=== PATIENT | male | born 1995 | race Caucasian/White ===

== ENCOUNTER 2017-03-05 21:31 | Emergency (ER) | payer MEDICAID ==
[~2017-03-05] VITALS: Ht 177.8 cm; Wt 83.0 kg
[2017-03-05] MEDS ORDERED: SULFAMETH./TRIMETHOPRIM DS 800MG/160MG TABLET ONE (22:30)
[2017-03-05] MEDS ORDERED: CEFAZOLIN 1,000 MG IM ONE (22:30)
[2017-03-05] MEDS ORDERED: CEFAZOLIN 1,000 MG ONE (22:30)
[2017-03-05] MEDS ORDERED: SULFAMETH./TRIMETHOPRIM DS 800MG/160MG TABLET PO ONE (22:30)
[2017-03-06] MEDS ORDERED: IBUPROFEN 200 MG TABLET ONE (00:26)
[2017-03-06] MEDS ORDERED: IBUPROFEN 200 MG TABLET PO ONE (00:30)
[2017-03-06 00:38] VITALS: BP 106/68
== END 2017-03-06 00:40 | disposition home or self-care (01) ==
LOC: ED 23:07
DX: L03.115 Cellulitis of right lower limb (principal)
CPT/HCPCS: 73630; 96372; 99284; J0690

== ENCOUNTER → 2020-01-20 | Outpatient (CLI) | payer MEDICAID | END | disposition home or self-care (01) | LOC: RAD 15:52 | PROVIDERS: ATTEND Orthopaedic Surgery | DX: S62.316A Displaced fracture of base of fifth metacarpal bone, right hand, initial encounter for closed fracture (principal); X58.XXXA Exposure to other specified factors, initial encounter; Y93.89 Activity, other specified; Y92.89 Other specified places as the place of occurrence of the external cause; Y99.8 Other external cause status ==